=== PATIENT | male | born 1945 | race Caucasian/White ===

== ENCOUNTER 2018-07-23 11:26 | Emergency (ER) | payer MEDICARE, OTHER ==
[~2018-07-23] VITALS: Ht 177.8 cm; Wt 92.7 kg
[2018-07-23] MEDS ORDERED: ESOM40CA35 PO (11:33)
[2018-07-23] MEDS ORDERED: CETI10TA4 PO (11:33)
[2018-07-23] MEDS ORDERED: MONT10TA2 PO (11:33)
[2018-07-23] MEDS ORDERED: ATOR1TAB19 PO (11:33)
[2018-07-23 11:43] VITALS: BP 170/90
[2018-07-23] MEDS ORDERED: DIFL150T PO (12:08)
== END 2018-07-23 12:21 | disposition home or self-care (01) ==
LOC: M ED 11:26
DX: B37.0 Candidal stomatitis (principal); E78.00 Pure hypercholesterolemia, unspecified; K21.9 Gastro-esophageal reflux disease without esophagitis; J30.2 Other seasonal allergic rhinitis; Z79.899 Other long term (current) drug therapy